=== PATIENT | female | born 2000 | race Caucasian/White ===

== ENCOUNTER 2018-01-07 14:59 | Emergency (ER) | payer SELFPAY ==
--- NOTE | 2018-01-07 16:01 | ER ---
Nurse's Notes [facility] Name: Mary Carmen Kingston Age: 17 yrs Sex: Female : 2000 Arrival Date: 01/07/2018 Time: 15:02 Bed 12 Private MD: Diagnosis: Insect bite (nonvenomous) of ankle Presentation: 01/07 15:05 Presenting complaint: Patient states: Possible insect bite to right ankle 3 days ago. aj Reports swelling. Transition of care: patient was not received from another setting of care. Onset of symptoms was January 04, 2018. Initial Sepsis Screen: Does the patient meet any 2 criteria? No. Patient's initial sepsis screen is negative. Does the patient have a suspected source of infection? No. Patient's initial sepsis screen is negative. Care prior to arrival: None. 15:05 Method Of Arrival: Ambulatory 15:05 Acuity: RAHUL 4 Triage Assessment: 15:06 Bite description: bite sustained to right ankle is superficial, was sustained 3 days by aj an unknown animal, animal information: vaccination(s) is not applicable. General: Appears in no apparent distress. comfortable, Behavior is calm, cooperative, appropriate for age. Pain: Complains of pain in right ankle Pain currently is 5 out of 10 on a pain scale. Neuro: Level of Consciousness is awake, alert, obeys commands, Oriented to person, place, time, situation, Appropriate for age. Respiratory: Airway is patent Respiratory effort is even, unlabored, Respiratory pattern is regular, symmetrical. Derm: Skin is intact, is healthy with good turgor, Skin is pink, warm \\T\\ dry. normal. Injury Description: Bite sustained to right ankle caused by an unknown animal, is superficial, was sustained. 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 - Social history:: Smoking status: Patient/guardian denies using tobacco. Screenin:41 Abuse screen: Denies threats or abuse. Denies injuries from another. Nutritional ss screening: No deficits noted. Tuberculosis screening: Never had TB. Fall Risk None identified. Assessment: 15:41 General: Appears in no apparent distress. comfortable, Behavior is calm, cooperative, ss Denies fever, feeling ill, fatigue, chills. General: patient states, "I'm also . I haven't seen a doctor yet, but i'm like two or three months.". Pain: Complains of pain in right ankle Pain currently is 5 out of 10 on a pain scale. Quality of pain is described as aching, tender, Pain began 2-3 days ago. Is continuous, Aggravated by increased activity, weight bearing. Neuro: Level of Consciousness is awake, alert, obeys commands, Oriented to person, place, time, situation, Speech is normal. Cardiovascular: Capillary refill < 3 seconds is brisk in bilateral fingers Patient's skin is warm and dry. Respiratory: Airway is patent Respiratory effort is even, unlabored. EENT: Oral mucosa is moist. Throat is clear. Derm: Skin is normal. Derm: Bruising that is dark purple, green, on right ankle. Derm: three small, dime sized areas of redness that patient explains to be possibly insect bites. Pt reports redness, swelling and bruising has improved over the past two days. Musculoskeletal: Circulation, motion, and sensation intact. Capillary refill < 3 seconds, is brisk, in bilateral fingers. Range of motion: intact in all extremities, Swelling present in right ankle. Vital Signs: 15:06 BP 133 / 77; Pulse 90; Resp 20; Temp 97.8; Pulse Ox 99% on R/A; Weight 83.91 kg; Height aj 5 ft. 8 in. (172.72 cm); Pain 5/10; 15:06 Body Mass Index 28.13 (83.91 kg, 172.72 cm) aj ED Course: 15:02 Patient arrived in ED. sb2 15:06 Triage completed. aj 15:06 Arm band placed on left wrist. Patient placed in waiting room, Patient notified of wait aj time. 15:18 Monica Pritchard NP is PHCP. rh1 15:18 Obed Arriaga MD is Attending Physician. rh1 15:40 Arabella Silverio RN is Primary Nurse. ss 15:41 Patient has correct armband on for positive identification. Call light in reach. Adult ss w/ patient. 16:07 No provider procedures requiring assistance completed. Patient did not have IV access ss during this emergency room visit. Administered Medications: No medications were administered Outcome: 16:00 Discharge ordered by . [facility] 16:07 Discharged to home ambulatory, with family. 16:07 Condition: good 16:07 Discharge instructions given to patient, family, Instructed on discharge instructions, follow up and referral plans. medication usage, Demonstrated understanding of instructions, follow-up care, medications. 16:08 Patient left the ED. Signatures: Sonal Gutierres RN RN aj Smirch, Shelby, RN RN ss Monica Pritchard, AGUILAR CAMERA TECHNICIAN rh1 Ayanna Crowe 2
--- NOTE | 2018-01-07 16:01 | EDPHYS ---
Physician Documentation [facility] Name: Mary Carmen Kingston Age: 17 yrs Sex: Female : 2000 Arrival Date: 01/07/2018 Time: 15:02 Bed 12 Private MD: ED Physician Obed Arriaga HPI: 01/07 15:38 This 17 yrs old Female presents to ER via Ambulatory with complaints of rh1 Insect Bite. 15:38 Onset: The symptoms/episode began/occurred 3 day(s) ago. The patient has not rh1 experienced similar symptoms in the past. The patient has not recently seen a physician. Pt. reports two red spots at right medial ankle began 3 days ago, reports "I think something bit me." Denies seeing anything specific bite her, reports clear drainage coming from the wounds. She reports the swelling is getting worse. Denies any fever, vomiting.. 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 - Social history:: Smoking status: Patient/guardian denies using tobacco. ROS: 15:38 Constitutional: Negative for fever, chills rh1 15:38 Abdomen/GI: Negative for nausea and vomiting. 15:38 MS/extremity: Positive for swelling, Negative for decreased range of motion, deformity, erythema, paresthesias, tenderness. 15:38 Skin: Positive for lesions. 15:38 Neuro: Negative for numbness, tingling. 15:38 All other systems are negative. Exam: 15:38 Constitutional: This is a well developed, well nourished patient who is awake, alert, rh1 and in no acute distress. Head/Face: Normocephalic, atraumatic. ENT: Nares patent. No nasal discharge, no septal abnormalities noted. Tympanic membranes are normal and external auditory canals are clear. Oropharynx with no redness, swelling, or masses, exudates, or evidence of obstruction, uvula midline. Mucous membranes moist. Neck: Trachea midline, and no cervical lymphadenopathy. Supple, full range of motion without nuchal rigidity. No Meningismus. Chest/axilla: Normal chest wall appearance and motion. Nontender with no deformity. No lesions are appreciated. Cardiovascular: Regular rate and rhythm with a normal S1 and S2. No gallops, murmurs, or rubs. No JVD. No pulse deficits. Respiratory: Lungs have equal breath sounds bilaterally, clear to auscultation. No rales, rhonchi or wheezes noted. No increased work of breathing. Abdomen/GI: Soft, non-tender, with normal bowel sounds. No distension. No guarding or rebound. No evidence of tenderness throughout. Back: No spinal tenderness. No costovertebral tenderness. Full range of motion. 15:38 Musculoskeletal/extremity: ROM: full active range of motion, in the right foot, left foot, right leg and left leg, full passive range of motion, in the right foot, left foot, right leg and left leg, Pulses: noted to be 2+ in the right posterior tibial artery, right dorsalis pedis artery, left posterior tibial artery and left dorsalis pedis artery, Perfusion: the extremity is pink, warm, with brisk capillary refill, toes at right foot, Sensation intact. 15:38 Skin: abscess, not appreciated, cellulitis, is not appreciated, lesion(s), noted, and can be described as erythematous, nontender, raised, with serous crusting, located on the right ankle, medial aspect of right ankle, with mild diffuse swelling. 15:38 Neuro: Orientation: is normal, to person, place \\T\\ time. Mentation: is normal, lucid, able to follow commands, Motor: is normal, moves all fours, Sensation: is normal, no obvious gross deficits, Gait: is steady, at a normal pace, without difficulty. Vital Signs: 15:06 BP 133 / 77; Pulse 90; Resp 20; Temp 97.8; Pulse Ox 99% on R/A; Weight 83.91 kg; Height aj 5 ft. 8 in. (172.72 cm); Pain 5/10; 15:06 Body Mass Index 28.13 (83.91 kg, 172.72 cm) aj MDM: 15:38 Patient medically screened. 1 16:00 Data reviewed: vital signs, nurses notes, and as a result, I will discharge patient. [facility] Data interpreted: Pulse oximetry: on room air is 99 %. Interpretation: normal. Counseling: I had a detailed discussion with the patient and/or guardian regarding: the historical points, exam findings, and any diagnostic results supporting the discharge/admit diagnosis, the need for outpatient follow up, a family practitioner, to return to the emergency department if symptoms worsen or persist or if there are any questions or concerns that arise at home. Administered Medications: No medications were administered Disposition: 16:47 Co-signature as Attending Physician, Obed Arriaga MD. rn Disposition: 01/07/18 16:00 Discharged to Home. Impression: Insect bite (nonvenomous) of ankle. - Condition is Stable. - Discharge Instructions: Insect Bite. - Medication Reconciliation Form, Thank You Letter, Antibiotic Education, Prescription Opioid Use form. - Follow up: Private Physician; When: 1 - 2 days; Reason: Recheck today's complaints, Continuance of care, Re-evaluation by your physician. Follow up: Emergency Department; When: As needed; Reason: Fever > 102 F, If symptoms return, Trouble breathing, Worsening of condition. - Problem is new. - Symptoms are unchanged. - Notes: 1. Take benadryl up to 4 times daily, and apply cool compresses to inner ankle. Keep your leg elevated while sitting. Signatures: Sonal Gutierres RN RN aj Nieto, Roman, MD MD rn Smirch, Shelby, RN RN ss Jones, Rachel, NP MOLDER MACHINE rh1 Corrections: (The following items were deleted from the chart) 16:01 15:38 Skin: lesion(s), noted, and can be described as erythematous, nontender, raised, rh1 with serous crusting, located on the right ankle, medial aspect of right ankle, with mild diffuse swelling, rh1 16:08 16:00 01/07/2018 16:00 Discharged to Home. Impression: Insect bite (nonvenomous) of ss ankle. Condition is Stable. Forms are Medication Reconciliation Form, Thank You Letter, Antibiotic Education, Prescription Opioid Use. Follow up: Private Physician; When: 1 - 2 days; Reason: Recheck today's complaints, Continuance of care, Re-evaluation by your physician. Follow up: Emergency Department; When: As needed; Reason: Fever > 102 F, If symptoms return, Trouble breathing, Worsening of condition. Problem is new. Symptoms are unchanged. rh1
== END 2018-01-07 16:08 | disposition home or self-care (01) ==
LOC: ER 14:59
DX: S90.561A Insect bite (nonvenomous), right ankle, initial encounter (principal)
CPT/HCPCS: 99281